=== PATIENT | female | born 1940 | race Caucasian/White ===

== ENCOUNTER → 2017-07-30 06:52 | Outpatient (CLI) | payer MEDICARE, OTHER, SELFPAY ==
[2017-07-30 10:36] LABS: Alanine Aminotransferase 26 IU/L (9-52); Albumin 4.4 g/dL (3.5-5.0); Albumin Globulin Ratio 1.3 (1.0-2.8); Alkaline Phosphatase 74 U/L (38-126); Aspartate Aminotransferase 28 IU/L (14-36); Bilirubin Total 0.7 mg/dL (0.2-1.3); Blood Urea Nitrogen 18 mg/dL (7-17); Calcium 9.8 mg/dL (8.4-10.2); Carbon Dioxide 29 mmol/L (22-32); Chloride 98 mmol/L (98-107); Cholesterol 244 mg/dL (140-199); Estimated Glomerular Filt Rate > 60.0 mL/min (>60); Globulin 3.4 g/dL (1.7-4.1); Glucose 97 mg/dL (80-110); HDL Cholesterol 55 mg/dL (40-60); HEMOLYSIS < 15 (0-50); LDL Cholesterol Calculated 168 mg/dL (<100); Potassium 4.1 mmol/L (3.4-5.1); Sodium 142 mmol/L (137-145); Total Protein 7.8 g/dL (6.3-8.2); Triglycerides 105 mg/dL (35-150)
[2017-07-30 10:47] LABS: Thyroid Stimulating Hormone 3.98 uIU/mL (0.47-4.68)
== END ==
PROVIDERS: PCP Family Medicine; Visit Provider Internal Medicine
DX: I10 Essential (primary) hypertension (principal); E78.5 Hyperlipidemia, unspecified
CPT/HCPCS: 36415; 80053; 80061; 84443

== ENCOUNTER → 2018-02-25 12:19 | Outpatient (CLI) | payer MEDICARE, OTHER, SELFPAY ==
--- NOTE | 2018-02-25 | DI.MG.S_ITS ---
BILATERAL DIGITAL SCREENING MAMMOGRAM 3D/2D WITH CAD: 02/25/2018 CLINICAL: Routine screening. Family history of breast cancer. Comparison is made to exams dated: 01/23/2017 mammogram, 01/02/2016 mammogram, and 12/29/2014 mammogram - [facility]. There are scattered fibroglandular elements in both breasts. Current study was also evaluated with a Computer Aided Detection (CAD) system. There are benign vascular calcifications in both breasts. No significant masses, calcifications, or other findings are seen in either breast. There has been no significant interval change. IMPRESSION: There is no mammographic evidence of malignancy. A 1 year screening mammogram is recommended. This exam was interpreted at Station ID: [id number]. NOTE: For mammograms, a report in lay terms will be sent to the patient. Approximately 15% of breast malignancies will not be visualized mammographically. In the management of a palpable breast mass, a negative mammogram must not discourage biopsy of a clinically suspicious lesion. Electronically Signed By: Safia reilly/phu:02/25/2018 16:35:21 letter sent: Normal Exam ACR BI-RADS Category 2: Benign Finding(s) 3342F
== END ==
PROVIDERS: PCP Internal Medicine; Visit Provider Internal Medicine
DX: Z12.31 Encounter for screening mammogram for malignant neoplasm of breast (principal); Z80.3 Family history of malignant neoplasm of breast
CPT/HCPCS: 77063; 77067

== ENCOUNTER → 2018-08-14 11:44 | Outpatient (CLI) | payer MEDICARE, OTHER, SELFPAY ==
[2018-08-14 13:14] LABS: Blood Urea Nitrogen 24 mg/dL (7-17); Calcium 10.2 mg/dL (8.4-10.2); Carbon Dioxide 27 mmol/L (22-32); Chloride 104 mmol/L (98-107); Estimated Glomerular Filt Rate 53.6 mL/min (>60); Glucose 107 mg/dL (80-110); HEMOLYSIS < 15 (0-50); Potassium 4.5 mmol/L (3.4-5.1); Sodium 142 mmol/L (137-145)
== END ==
PROVIDERS: PCP Internal Medicine; Visit Provider Internal Medicine
DX: E78.5 Hyperlipidemia, unspecified (principal); I10 Essential (primary) hypertension
CPT/HCPCS: 36415; 80048

== ENCOUNTER → 2019-03-10 09:53 | Outpatient (CLI) | payer MEDICARE, OTHER, SELFPAY ==
--- NOTE | 2019-03-10 | DI.MG.S_ITS ---
BILATERAL DIGITAL SCREENING MAMMOGRAM 3D/2D WITH CAD: 03/10/2019 CLINICAL: Routine screening. Family history of breast cancer. Comparison is made to exams dated: 02/25/2018 mammogram - [facility], 01/23/2017 mammogram, and 01/02/2016 mammogram - [facility]. There are scattered fibroglandular elements in both breasts. Current study was also evaluated with a Computer Aided Detection (CAD) system. There are benign vascular calcifications in the right breast. No significant masses, calcifications, or other findings are seen in either breast. There has been no significant interval change. IMPRESSION: There is no mammographic evidence of malignancy. A 1 year screening mammogram is recommended. This exam was interpreted at Station ID: [id number]. NOTE: For mammograms, a report in lay terms will be sent to the patient. Approximately 15% of breast malignancies will not be visualized mammographically. In the management of a palpable breast mass, a negative mammogram must not discourage biopsy of a clinically suspicious lesion. Electronically Signed By: Linda dukes/phu:03/10/2019 12:20:14 letter sent: Normal Exam ACR BI-RADS Category 2: Benign Finding(s) 3342F
== END ==
PROVIDERS: PCP Internal Medicine; Visit Provider Internal Medicine
DX: Z12.31 Encounter for screening mammogram for malignant neoplasm of breast (principal); Z80.3 Family history of malignant neoplasm of breast
CPT/HCPCS: 77063; 77067

== ENCOUNTER 2020-11-02 02:26 | Emergency (ER) | payer MEDICARE, OTHER, SELFPAY ==
[2020-11-02 02:30] VITALS: BP 209/93; PULSE 74; RESP 20; TEMP 36.6; O2SAT 97
[2020-11-02 02:40] VITALS: PULSE 67; O2SAT 98
--- NOTE | 2020-11-02 02:57 | ED_ITS ---
HPI - General Adult General Chief complaint: Recheck/Abnormal Lab/Rx Stated complaint: high blood pressure x3days Time Seen by Provider: 11/02/20 02:31 Source: patient Mode of arrival: Ambulatory Limitations: no limitations History of Present Illness HPI narrative: 80-year-old woman with a history of essential hypertension who was 3 weeks ago comes in with complaints of elevated blood pressure. She has been having difficulty sleeping after the loss of her and all of the arrangements etc.. She notes that her blood pressures have been trending in the 180-200 range. Over the last week or so she has had a dull headache behind her eyes and was wondering if this might be related to sinuses. She reports no paresthesias or weakness. No visual changes. She has had no chest pain, orthopnea, exertional dyspnea, palpitations, abdominal pain, vomiting, diarrhea, lower extremity edema. Her son brought her in this evening with concerns of of blood pressure at home of 210/100. Related Data Home Medications Medication Instructions Recorded Confirmed magnesium 200 mg tablet 200 mg PO PRN PRN #0 08/26/16 Previous Rx's Medication Instructions Recorded hydrochlorothiazide 25 mg tablet 25 mg PO DAILY #30 tab 11/02/20 lorazepam 0.5 mg tablet (Ativan) 0.5 mg PO BEDTIME PRN #14 tab 11/02/20 Allergies Allergy/AdvReac Type Severity Reaction Status Date / Time shellfish derived Allergy Severe THROAT Verified 11/02/20 03:05 [SHELLFISH DERIVED] SWELLING codeine [CODEINE] Allergy Mild NAUSEA Verified 11/02/20 03:05 Review of Systems Review of Systems Narrative: Remainder of complete review of systems is otherwise unremarkable except for that included in the HPI. Patient History Medical History (Updated 11/02/20 @ 03:10 by Luisa Morris MD) Hypertension Social History Smoking Status: Never smoker Smoking Status: Never smoker Substance Use Type: does not use Exam Narrative Exam Narrative: General: Healthy appearing, in no acute distress. Able to give a complete and coherent history. Well-nourished well-developed HEENT: Moist mucous membranes, normal sclera with reactive pupils, Respiratory: Lungs are clear to auscultation, no wheezing no rales no rhonchi. Full and symmetrical air movement Cardiac: Regular rate and rhythm no murmurs no bruits Skin: Warm and dry, no rashes Neurologic: Grossly neurologically intact with no obvious asymmetries or abnormalities Extremities: No trauma, well perfused Psych: Cooperative, appropriate insight and affect Initial Vital Signs Initial Vital Signs: Vital Signs Temperature 97.8 F 11/02/20 02:30 Pulse Rate 74 11/02/20 02:30 Respiratory Rate 20 11/02/20 02:30 Blood Pressure 209/93 H 11/02/20 02:30 Pulse Oximetry 97 11/02/20 02:30 Course Orders Ordered: Discontinued Medications Lorazepam (Lorazepam 0.5 Mg Tablet) 0.5 mg PO NOW ONE Stop: 11/02/20 02:59 Last Admin: 11/02/20 03:05 Dose: 0.5 mg Documented by: Vital Signs Vital signs: Vital Signs - 8 hr 11/02/20 02:30 Temperature 97.8 F Pulse Rate 74 Respiratory Rate 20 Blood Pressure 209/93 H Pulse Oximetry 97 Medical Decision Making MDM Narrative Medical decision making narrative: 80-year-old woman with acute grief reaction and difficulty adjusting with sleep abnormalities. This is likely contributing to her essential hypertension being slightly worsened. In the past she has had luck with a combination of valsartan and chlorthalidone. Somewhere along the line she discontinued the chlorthalidone. She does have an appointment with her primary care physician in about a week to review blood pressure issues. At this time, she is asymptomatic. Will suggest that she add back a diuretic and will change this to hydrochlorothiazide. Will have her start 25 mg in the morning. Check daily blood pressures and review this with her primary care physician. Regarding the grief reaction and sleep difficulties I have given her 10 tablets of 0.5 mg of lorazepam to see if this can help bridge this adjustment period for her. She and her son are both in agreement with current plan. Questions answered she is safe for home discharge Discharge Plan Departure Patient Disposition: Home Clinical Impression: Grief reaction Hypertension Qualifiers: Hypertension type: primary hypertension Qualified Code(s): I10 - Essential ( primary) hypertension Instructions: DI for High Blood Pressure Activity Restrictions/Additional Instructions: Lazara, it was wonderful to see you again. For your blood pressure, please add 25 mg of hydrochlorothiazide to your current valsartan 160 mg. You can take both medications 1st thing in the morning. After losing Wayne, you are up for a big life adjustment. It makes sense that you are having difficulty sleeping and worrying about things at night. It is wonderful that your son is available and can help. I suspect that part of this anxiety and the sleep loss is making your blood pressure more challenging to control. I am going to suggest that you try using lorazepam/ativan to help relax you enough to sleep. This is a transition medication only, but may be helpful in the next few weeks. I have given you a dose in the ER tonight. If it seems to be effective, then please fill the prescription and use it at bedtime as needed over the next couple of weeks. Please keep track of your blood pressures over the next week and review these numbers with Dr. Orozco. Please also let him know how you are doing with sleeping and how you have responded to this low dose of Ativan. I wish you the very best Prescriptions: New hydrochlorothiazide 25 mg tablet 25 mg PO DAILY Qty: 30 RF: 0 lorazepam [Ativan] 0.5 mg tablet 0.5 mg PO BEDTIME PRN (Reason: sleep) Qty: 14 RF: 0 No Action magnesium 200 MG tablet 200 mg PO PRN PRNQty: 0 RF: 0 Referrals: Brandon Veras MD [Primary Care Provider] -
[2020-11-02 03:00] VITALS: PULSE 59; O2SAT 96
[2020-11-02 03:01] VITALS: BP 206/83; PULSE 58; O2SAT 96
[2020-11-02] MEDS: LORazepam 0.5 MG TABLET PO (03:05)
== END 2020-11-02 03:17 | disposition home or self-care (01) ==
PROVIDERS: Emergency Provider Emergency Medicine; PCP Internal Medicine
DX: I10 Essential (primary) hypertension (principal); F43.20 Adjustment disorder, unspecified; Z72.820 Sleep deprivation
CPT/HCPCS: 99283

== ENCOUNTER 2020-11-29 14:42 | Emergency (ER) | payer MEDICARE, OTHER, SELFPAY ==
[2020-11-29 14:50] VITALS: PULSE 78; RESP 20; TEMP 36.6; O2SAT 99
--- NOTE | 2020-11-29 14:59 | DI.CT.S_ITS ---
PROCEDURE: CT FACIAL BONES WO CON INDICATIONS: fall TECHNIQUE: Noncontrast 2.5 mm thick axial images acquired from the mandible through the frontal sinuses, with coronal and sagittal reformatting. For radiation dose reduction, the following was used: automated exposure control, adjustment of mA and/or kV according to patient size. COMPARISON: [facility], CT, CT HEAD/BRAIN WO CON, 11/29/2020, 15:00. FINDINGS: Image quality: Excellent. Bones and teeth: Orbital colby are intact. Sinus colby show no fracture or deformity. Nasal bones and septum are intact. Visualized portions of the mandible demonstrate no fractures or subluxation. Zygomatic arches are intact. Pterygoid plates are intact. Visualized portions of the skull base and auditory canals are intact. Sinuses: Paranasal sinuses are aerated, without fluid levels, mucosal thickening, or mucoceles. Mastoid air cells are aerated. Soft tissues: No edema, masses, or fluid collections. No enlarged lymph nodes. No soft tissue lacerations or debris. Vascular: Visualized vascular structures appear normal in the absence of contrast. Bony vascular foramina and canals are intact. IMPRESSION: No visualized fracture. Dictated by: Karlie Gonzales M.D. on 11/29/2020 at 15:14 Approved by: Karlie Gonzales M.D. on 11/29/2020 at 15:17
--- NOTE | 2020-11-29 14:59 | DI.CT.S_ITS ---
PROCEDURE: CT HEAD/BRAIN WO CON INDICATIONS: fall TECHNIQUE: Noncontrast 4.5 mm thick angled axial sections acquired from the foramen magnum to the vertex, with coronal and sagittal reformats. For radiation dose reduction, the following was used: automated exposure control, adjustment of mA and/or kV according to patient size. COMPARISON: None. FINDINGS: Image quality: Excellent. CSF spaces: Basal cisterns are patent. No extra-axial fluid collections. The ventricles are symmetric in size and shape. Brain: No intracranial bleeds or masses. There is cerebral volume loss for age, with resultant ventricular and sulcal prominence. There are periventricular and deep white matter chronic small vessel ischemic changes. There is intracranial internal carotid artery atherosclerosis. Skull and face: Calvarium and visualized facial bones appear intact, without suspicious lesions. Sinuses: Visualized sinuses and mastoids are clear. IMPRESSION: 1. No acute intracranial process. 2. Moderate atrophy and chronic microvascular ischemic changes. Dictated by: Karlie Gonzales M.D. on 11/29/2020 at 15:12 Approved by: Karlie Gonzales M.D. on 11/29/2020 at 15:14
--- NOTE | 2020-11-29 15:50 | ED_ITS ---
HPI - Fall General Chief Complaint: Fall Stated Complaint: Fell down Mouth/Tooth injury Time Seen by Provider: 11/29/20 15:50 Source: patient Mode of arrival: Ambulatory History of Present Illness HPI Narrative: Patient is a 80-year-old female who earlier this afternoon tripped over her dog falling forward hitting her face on the ground. There was no loss of consciousness. She did scrape up her knees however she reports no other knee pain. No loss of conscious. No neck pain. She did break a tooth. She has had some dental issues in the past. She does have a dentist but has no current follow-up scheduled. She is not on blood thinners. No upper extremity complaints. Related Data Home Medications Medication Instructions Recorded Confirmed magnesium 200 mg tablet 200 mg PO PRN PRN #0 08/26/16 Previous Rx's Medication Instructions Recorded hydrochlorothiazide 25 mg tablet 25 mg PO DAILY #30 tab 11/02/20 lorazepam 0.5 mg tablet (Ativan) 0.5 mg PO BEDTIME PRN #14 tab 11/02/20 Allergies Allergy/AdvReac Type Severity Reaction Status Date / Time shellfish derived Allergy Severe THROAT Verified 11/02/20 03:05 [SHELLFISH DERIVED] SWELLING codeine [CODEINE] Allergy Mild NAUSEA Verified 11/02/20 03:05 Review of Systems Constitutional Constitutional: Denies fever(s) and Denies headache(s) Eyes Eyes: Denies change in vision ENT Ears, Nose, Mouth, and Throat: Reports system reviewed and no additional complaints, except as documented, Reports as per HPI and Denies headache(s) Cardiovascular Cardiovascular: Reports system reviewed and no additional complaints, except as documented Respiratory Respiratory: Reports system reviewed and no additional complaints, except as documented Gastrointestinal Gastrointestinal: Reports system reviewed and no additional complaints, except as documented Musculoskeletal Musculoskeletal: Reports system reviewed and no additional complaints, except as documented Integumentary/Breasts Skin/Breast: Reports system reviewed and no additional complaints, except as documented Neurologic Neurologic: Denies headache(s) Hematologic/Lymphatic On Anticoagulants: No Patient History Medical History Hypertension Social History Smoking Status: Never smoker Smoking Status: Never smoker Substance Use Type: does not use Exam Initial Vital Signs Initial Vital Signs: Vital Signs Temperature 97.9 F 11/29/20 14:50 Pulse Rate 78 11/29/20 14:50 Respiratory Rate 20 11/29/20 14:50 Pulse Oximetry 99 11/29/20 14:50 Const General: cooperative, comfortable and well developed [facility] Head: normal to inspection Ears: hearing grossly normal bilaterally Nose: external nose normal, septum normal and No epistaxis Face and sinus: normal facial exam, face symmetric and no maxillary instability Mouth: oral mucosae normal, lip normal and tongue normal Teeth and gingiva: other (tooth 7 broken rosa 3 ) Resp Effort & Inspection: normal respiratory effort Skin General: no rashes or lesions noted Neuro General: patient alert, patient awake, patient oriented x3 and moves all extremities Extrem General: normal to inspection and capillary refill normal Scores GCS [place] coma scale eye opening: Spontaneous [place] coma scale verbal response: Orientated [place] coma scale motor response: Obey commands [place] coma scale total score: 15 Nexus Score for C-Spine Focal Neurologic deficit present: No Midline spinal tenderness present: No Altered level of conciousness present: No Intoxication present: No Distracting Injury Present: No Nexus Criteria for C-spine: 0 Course Orders Ordered: ED Orders 11/29/20 14:59 CT facial bones wo con Stat CT head/brain wo con Stat Vital Signs Vital signs: Vital Signs - 8 hr 11/29/20 14:50 Temperature 97.9 F Pulse Rate 78 Respiratory Rate 20 Pulse Oximetry 99 MDM - Fall Imaging Data CT scan - head: Radiologist's Impression: [place] [address] CT Scan Report Signed Patient: Lazara Samson MR#: [id number] : 1940 Acct:[id number] Age/Sex: 80 / F Date of Service: 11/29/20 Loc: ED Accession Number: [id number] ?? Procedure: CT head/brain wo con Ordering Provider: Bj Mcfarland D.O. PROCEDURE:? CT HEAD/BRAIN WO CON ? INDICATIONS:? fall ? TECHNIQUE:? Noncontrast 4.5 mm thick angled axial sections acquired from the foramen magnum to the vertex, with coronal and sagittal reformats.? For radiation dose reduction, the following was used:? automated exposure control, adjustment of mA and/or kV according to patient size.? ? COMPARISON:? None. ? FINDINGS:? Image quality:? Excellent.? ? CSF spaces:? Basal cisterns are patent.? No extra-axial fluid collections.? The ventricles are symmetric in size and shape.? ? Brain:? No intracranial bleeds or masses.? There is cerebral volume loss for age, with resultant ventricular and sulcal prominence.? There are periventricular and deep white matter chronic small vessel ischemic changes.? There is intracranial internal carotid artery atherosclerosis.? ? Skull and face:? Calvarium and visualized facial bones appear intact, without suspicious lesions.? ? Sinuses:? Visualized sinuses and mastoids are clear.? ? IMPRESSION:? ? 1. No acute intracranial process. ? 2. Moderate atrophy and chronic microvascular ischemic changes. ? ? ? Dictated by: Karlie Gonzales M.D. on 11/29/2020 at 15:12 ? ? Approved by: Karlie Gonzales M.D. on 11/29/2020 at 15:14?? face ct: Radiologist's Impression: Launch?[place] [address] CT Scan Report Signed Patient: Lazara Samson MR#: [id number] : 1940 Acct:[id number] Age/Sex: 80 / F Date of Service: 11/29/20 Loc: ED Accession Number: [id number] ?? Procedure: CT facial bones wo con Ordering Provider: Bj Mcfarland D.O. PROCEDURE:? CT FACIAL BONES WO CON ? INDICATIONS:? fall ? TECHNIQUE:? Noncontrast 2.5 mm thick axial images acquired from the mandible through the frontal sinuses, with coronal and sagittal reformatting.? For radiation dose reduction, the following was used:? automated exposure control, adjustment of mA and/or kV according to patient size.? ? COMPARISON:? [facility], CT, CT HEAD/BRAIN WO CON, 11/29/2020, 15:00. ? FINDINGS:? Image quality:? Excellent.? ? Bones and teeth:? Orbital colby are intact.? Sinus colby show no fracture or deformity.? Nasal bones and septum are intact.? Visualized portions of the mandible demonstrate no fractures or subluxation.? Zygomatic arches are intact.? Pterygoid plates are intact.? Visualized portions of the skull base and auditory canals are intact.? ? Sinuses:? Paranasal sinuses are aerated, without fluid levels, mucosal thickening, or mucoceles.? Mastoid air cells are aerated.? ? Soft tissues:? No edema, masses, or fluid collections.? No enlarged lymph nodes.? No soft tissue lacerations or debris.? ? Vascular:? Visualized vascular structures appear normal in the absence of contrast.? Bony vascular foramina and canals are intact.? ? IMPRESSION:? ? No visualized fracture. ? ? Dictated by: Karlie Gonzales M.D. on 11/29/2020 at 15:14 ? ? Approved by: Karlie Gonzales M.D. on 11/29/2020 at 15:17?? MDM Narrative Medical decision making narrative: Head CT and facial CT are unremarkable. She does have a Rosa 3 classification tooth fracture of tooth 7. She has already had dental issues in the past and was planning on getting implants placed. Is not actively bleeding. A temporary cement breech was placed crossing to tooth 6 and 5. Informed her that this is only temporary and may not last until she can see a dentist. We did discuss eating a soft/liquid diet. Cervical spine cleared by nexus criteria. No indication for further radiologic studies. This was a mechanical fall. She is given return precautions and follow-up instructions. She expressed understanding agreement her Discharge Plan Departure Patient Disposition: Home Clinical Impression: Fracture of tooth Instructions: DI for Fractured Tooth Activity Restrictions/Additional Instructions: With any luck the temporary cement bridge that was placed today will last until you can see your dentist. I recommend that you contact your dentist tomorrow for a follow-up. Until then I do recommend a liquid/soft diet. Your head CT and CT scan of the facial bones did not show any signs of fractures. Return to the emergency department for any new or worsening symptoms Prescriptions: No Action magnesium 200 MG tablet 200 mg PO PRN PRNQty: 0 RF: 0 hydrochlorothiazide 25 mg tablet 25 mg PO DAILY Qty: 30 RF: 0 lorazepam [Ativan] 0.5 mg tablet 0.5 mg PO BEDTIME PRN (Reason: sleep) Qty: 14 RF: 0 Referrals: Brandon Veras MD [Primary Care Provider] -
[2020-11-29 16:36] VITALS: BP 200/82; PULSE 65; RESP 18; O2SAT 98
== END 2020-11-29 16:38 | disposition home or self-care (01) ==
PROVIDERS: Emergency Provider Emergency Medicine; PCP Internal Medicine
DX: S02.5XXA Fracture of tooth (traumatic), initial encounter for closed fracture (principal); W19.XXXA Unspecified fall, initial encounter
CPT/HCPCS: 70450; 70486; 99283; 99284

== ENCOUNTER 2021-04-30 20:49 | Emergency (ER) | payer MEDICARE, OTHER, SELFPAY ==
[2021-04-30] VITALS (9 sets, daily range): BP systolic 151–234; BP diastolic 63–94; PULSE 60–156; RESP 18–43; TEMP 36.8; O2SAT 89–99; BMI 23.0
--- NOTE | 2021-04-30 22:03 | DI.RAD.S_ITS ---
PROCEDURE: XR CHEST 1V INDICATIONS: chest pain TECHNIQUE: One view of the chest was acquired. COMPARISON: [facility], , CHEST 1 VIEW, 08/26/2016, 12:14. FINDINGS: Surgical changes and devices: None. Lungs and pleura: Lungs are clear. No pleural effusions or pneumothorax. Mediastinum: Mediastinal contours appear normal. Heart size is normal. Bones and chest wall: No suspicious bony lesions. Overlying soft tissues appear unremarkable. IMPRESSION: No acute cardiopulmonary disease process. Dictated by: Dominga Buchanan MD, PhD on 04/30/2021 at 22:37 Approved by: Dominga Buchanan MD, PhD on 04/30/2021 at 22:37
[2021-04-30 22:10] LABS: Add Manual Diff / Slide Review NO; Basophils Absolute Auto 100 /uL (0-100); Eosinophils Absolute Auto 300 /uL (0-450); Hemoglobin 13.6 g/dL (12.0-16.0); Lymphocytes Absolute Auto 2800 /uL (1100-4500); Lymphocytes Percent Auto 43.2 % (25-40); Mean Corpuscular HGB Conc 33.9 % (30-36); Mean Corpuscular Hemoglobin 29.6 PG (26-34); Mean Corpuscular Volume 87.4 fL (80-100); Monocytes Absolute Auto 500 /uL (0-900); Monocytes Percent Auto 7.2 % (3-14); Neutrophils Absolute Auto 2900 /uL (1500-7000); Neutrophils Percent Auto 44.6 % (50-75); Platelet Count 254 X10^3/uL (150-400); Red Blood Cell Count 4.58 X10^6/uL (4.0-5.2); White Blood Cell Count 6.6 X10^3/uL (4.5-11.0)
[2021-04-30 22:41] LABS: Alanine Aminotransferase 16 IU/L (<35); Albumin 4.5 g/dL (3.5-5.0); Albumin Globulin Ratio 1.4 (1.0-2.8); Alkaline Phosphatase 87 U/L (38-126); Aspartate Aminotransferase 29 IU/L (14-36); BUN Creatinine Ratio 19.5 (6-22); Bilirubin Total 0.5 mg/dL (0.2-1.3); Blood Urea Nitrogen 16 mg/dL (7-17); Calcium 9.7 mg/dL (8.4-10.2); Carbon Dioxide 26 mmol/L (22-32); Chloride 104 mmol/L (98-107); Creatine Kinase 70 U/L (30-135); Estimated Glomerular Filt Rate > 60.0 mL/min (>60); Globulin 3.2 g/dL (1.7-4.1); Glucose 104 mg/dL (80-110); HEMOLYSIS 21 (0-50); Lipase 91 U/L (23-300); Magnesium 1.9 mg/dL (1.6-2.3); Potassium 4.1 mmol/L (3.4-5.1); Sodium 137 mmol/L (137-145); Total Protein 7.7 g/dL (6.3-8.2)
[2021-04-30 22:52] LABS: Troponin I < 0.012 ng/mL (0.01-0.034)
[2021-05-01] VITALS: BP 168/72; PULSE 60; RESP 13; O2SAT 98
[2021-05-01 00:30] VITALS: BP 168/73; PULSE 59; RESP 19; O2SAT 97
--- NOTE | 2021-05-01 00:34 | ED.GENADULT ---
HPI - General Adult General Chief complaint: Hypertension Stated complaint: HIGH BLOOD PRESSURE Time Seen by Provider: 04/30/21 23:35 Source: patient Mode of arrival: Ambulatory Limitations: no limitations History of Present Illness HPI narrative: This is an 80-year-old female who comes emergency department with complaint of elevated blood pressure. Patient states she has been checking her blood pressure regularly she has gotten systolics greater than 200 and had a systolic of turn today. She states she has had intermittent elevations in blood pressure which has been worsened recently. She has felt quite stressed and anxious and that seems to make it worse. She states when she feels calm her blood pressures are typically better. Her primary care physician did double her valsartan to 160 mg a week ago and had increased her amlodipine to 10 mg 2 weeks ago. Patient states she occasionally will have a headache and feels flushed her cheeks, she has not had any numbness, tingling or weakness, no chest pain or shortness of breath. No nausea or vomiting. No swelling her extremities. She states she has been ambulating without issue. She states she is quite active up and down the stairs and moving things. She has not been as physically active with gardening and being outdoors because of the acromion weather. She has not any other daily medications besides her 2 blood pressure meds. No daily aspirin. She has had prior appendectomy, hysterectomy and dental surgeries. No tobacco, alcohol or illicit. She does note she was given a short-term prescription for lorazepam and would take half 0.5 mg tablet which did seem to be quite helpful. She states this was given her after her in September. She thought that her stress would reduce but has not since then. Related Data Home Medications Medication Instructions Recorded Confirmed magnesium 200 mg tablet 200 mg PO PRN PRN #0 08/26/16 Previous Rx's Medication Instructions Recorded hydrochlorothiazide 25 mg tablet 25 mg PO DAILY #30 tab 11/02/20 lorazepam 0.5 mg tablet (Ativan) 0.5 mg PO BEDTIME PRN #14 tab 11/02/20 lorazepam 0.5 mg tablet 0.25 mg PO DAILY PRN #10 tab 05/01/21 Allergies Allergy/AdvReac Type Severity Reaction Status Date / Time shellfish derived Allergy Severe THROAT Verified 11/02/20 03:05 [SHELLFISH DERIVED] SWELLING codeine [CODEINE] Allergy Mild NAUSEA Verified 11/02/20 03:05 Review of Systems Review of Systems ROS Unobtainable: All systems reviewed & are unremarkable except as noted in HPI and below Patient History Medical History Hypertension Social History Smoking Status: Never smoker Smoking Status: Never smoker Substance Use Type: does not use Exam Narrative Exam Narrative: GEN: Well appearing, thin elderly female alert and oriented x 3, patient appears to be in mild distress. HEENT: Atraumatic, pupils are equal round reactive to light, extraocular movements are intact, nares are clear. Throat is clear without any exudates, erythema, tonsillar enlargement or uvular deviation, no facial droop. HEART: Regular rate and rhythm without murmur, clicks, rubs. Pulses are equal in upper and lower extremities LUNGS:Lungs clear to auscultation, no wheezes, rales, crackles, chest moves symmetrically ABD:bowel sounds normal, soft, non-tender, no guarding, rebound, rigidity, no masses noted, no hepatosplenomegaly :No CVA tenderness MSCL: Non-tender, no muscle atrophy, muscles strength 5/5 upper and lower extremities, full range of motion NEURO:CN 2-12 intact, sensation normal SKIN: No rash, erythema or other skin changes noted. Initial Vital Signs Initial Vital Signs: Vital Signs Temperature 98.2 F 04/30/21 21:08 Pulse Rate 74 04/30/21 21:08 Respiratory Rate 18 04/30/21 21:08 Blood Pressure 234/94 H 04/30/21 21:08 Pulse Oximetry 98 04/30/21 21:08 Course Orders Ordered: ED Orders 04/30/21 21:30 Complete Blood Count AUTO DIFF Stat Comprehensive Metabolic Panel Stat Lipase Stat Magnesium Stat Troponin & CK Cardiac Panel Stat 04/30/21 22:03 XR chest 1V Stat EKG-12 Lead Stat Discontinued Medications Lorazepam (Lorazepam 0.5 Mg Tablet) 0.25 mg PO NOW ONE Stop: 05/01/21 00:54 Last Admin: 05/01/21 01:01 Dose: 0.25 mg Documented by: SHUBHAM Vital Signs Vital signs: Vital Signs - 8 hr 04/30/21 22:30 04/30/21 23:01 04/30/21 23:02 Pulse Rate 60 142 H 69 Respiratory Rate 43 H 30 H 22 Blood Pressure 198/76 H Pulse Oximetry 99 89 L 97 04/30/21 23:30 04/30/21 23:31 05/01/21 00:00 Pulse Rate 62 67 60 Respiratory Rate 18 28 H 13 Blood Pressure 151/63 H 168/72 H Pulse Oximetry 98 98 98 05/01/21 00:30 Pulse Rate 59 L Respiratory Rate 19 Blood Pressure 168/73 H Pulse Oximetry 97 Medical Decision Making Lab Data Result diagrams: 04/30/21 21:30 04/30/21 21:30 Labs: Lab Results 04/30/21 04/30/21 Range/Units 21:30 21:30 WBC 6.6 (4.5-11.0) X10^3/uL RBC 4.58 (4.0-5.2) X10^6/uL Hgb 13.6 (12.0-16.0) g/dL Hct 40.0 (36-46) % MCV 87.4 (80-100) fL MCH 29.6 (26-34) PG MCHC 33.9 (30-36) % RDW 13.0 (11.6-14.8) % Plt Count 254 (150-400) X10^3/uL Neut % (Auto) 44.6 L (50-75) % Lymph % (Auto) 43.2 H (25-40) % Thurston % (Auto) 7.2 (3-14) % Eos % (Auto) 4.0 (2-4) % Baso % (Auto) 1.0 (0-2) % Neut # (Auto) 2900 (4781-1874) /uL Lymph # (Auto) 2800 (5418-2922) /uL Thurston # (Auto) 500 (0-900) /uL Eos # (Auto) 300 (0-450) /uL Baso # (Auto) 100 (0-100) /uL Sodium 137 (137-145) mmol/L Potassium 4.1 (3.4-5.1) mmol/L Chloride 104 (98-107) mmol/L Carbon Dioxide 26 (22-32) mmol/L BUN 16 (7-17) mg/dL Creatinine 0.82 (0.52-1.04) mg/dL Estimated GFR > 60.0 (>60) mL/min BUN/Creatinine Ratio 19.5 (6-22) Glucose 104 (80-110) mg/dL Calcium 9.7 (8.4-10.2) mg/dL Magnesium 1.9 (1.6-2.3) mg/dL Total Bilirubin 0.5 (0.2-1.3) mg/dL AST 29 (14-36) IU/L ALT 16 (<35) IU/L Alkaline Phosphatase 87 (38-126) U/L Total Creatine Kinase 70 (30-135) U/L CK-MB (CK-2) TNP CK-MB (CK-2) Rel Index TNP Troponin I < 0.012 (0.01-0.034) ng/mL Total Protein 7.7 (6.3-8.2) g/dL Albumin 4.5 (3.5-5.0) g/dL Globulin 3.2 (1.7-4.1) g/dL Albumin/Globulin Ratio 1.4 (1.0-2.8) Lipase 91 (23-300) U/L Imaging Data Chest x-ray: Radiologist's Impression: [address] [id number] XRay Report Signed Patient: Lazara Samson MR#: [id number] : 1940 Acct:[id number] Age/Sex: 80 / F Date of Service: 04/30/21 Loc: ED Accession Number: [id number] ?? Procedure: XR chest 1V Ordering Provider: Xiomara Gonzalez D.O. PROCEDURE:? XR CHEST 1V ? INDICATIONS:? chest pain ? TECHNIQUE:? One view of the chest was acquired.? ? COMPARISON:? [facility], , CHEST 1 VIEW, 08/26/2016, 12:14. ? FINDINGS:? ? Surgical changes and devices:? None.? ? Lungs and pleura:? Lungs are clear.? No pleural effusions or pneumothorax.? ? Mediastinum:? Mediastinal contours appear normal.? Heart size is normal.? ? Bones and chest wall:? No suspicious bony lesions.? Overlying soft tissues appear unremarkable.? ? IMPRESSION:? No acute cardiopulmonary disease process. ? ? Dictated by: Dominga Buchanan MD, PhD on 04/30/2021 at 22:37 ? ? Approved by: Dominga Buchanan MD, PhD on 04/30/2021 at 22:37?? ECG Data Attestation: I personally reviewed and interpreted this ECG as follows: Prior ECG tracings: available for review Interpretation: Patient has sinus rhythm nonspecific ST change, rate of 68 OR 174 QRS is [address]TC [address] Patient has [address] depression lateral leads but appears present on prior EKG from 08/26/2016 as well as inverted T-wave and depression in 2 3 AVF which also appears present on prior EKG. MDM Narrative Medical decision making narrative: This is a pleasant 80-year-old female comes with complaint of elevated blood pressures. Blood pressures been drifting down. Here in the department to 168/73. Patient describes being quite stressed after the of her last summer she does note that when she is busy and her mind is calm her blood pressure seemed to be improved but when she stops and thinks they tend to be elevated and she feels quite anxious. She has had some mild headaches and flushed cheeks but no other symptoms. She is asymptomatic currently. Her blood pressure has been improving without intervention. Plan to have patient continue her home medications. She did note she had a prescription that was short-term for benzodiazepine which she felt was quite helpful and I think this would be appropriate. She is in progress is setting up primary care follow-up. Discharge Plan Departure Patient Disposition: Home Clinical Impression: Hypertension Instructions: DI for High Blood Pressure Activity Restrictions/Additional Instructions: Follow-up with your physician. Let them know that you were seen in the emergency department we do recommend follow-up. Continue to monitor your blood pressures. Continue home blood pressure medication. These both seem very appropriate. Has discussed anxiety, grief and stress can cause your blood pressure to elevate if you find it helpful you can take a half tablet of anti anxiety medication as needed. You may wish to discuss with your physician about a daily medication that can often be helpful for this but does not cause any chemical dependence. Prescription sent to [facility] in [place]. Please return for severe headaches, new chest pain or shortness of breath, lightheadedness or passing out, nausea or vomiting, new swelling in her extremities or other new or concerning symptoms. Prescriptions: New lorazepam 0.5 mg tablet 0.25 mg PO DAILY PRN (Reason: anxiety) Qty: 10 0RF No Action magnesium 200 MG tablet 200 mg PO PRN PRNQty: 0 0RF hydrochlorothiazide 25 mg tablet 25 mg PO DAILY Qty: 30 0RF lorazepam [Ativan] 0.5 mg tablet 0.5 mg PO BEDTIME PRN (Reason: sleep) Qty: 14 0RF Referrals: Brandon Veras MD [Primary Care Provider] -
[2021-05-01] MEDS: LORazepam 0.5 MG TABLET 0.25 MG PO (01:01)
== END 2021-05-01 01:09 | disposition home or self-care (01) ==
PROVIDERS: Emergency Provider Emergency Medicine; PCP Internal Medicine
DX: I10 Essential (primary) hypertension (principal)
CPT/HCPCS: 36415; 71045; 80053; 82550; 83690; 83735; 84484; 85025; 93005; 93010; 99284

== ENCOUNTER 2021-05-28 16:17 | Emergency (ER) | payer MEDICARE, OTHER, SELFPAY ==
[2021-05-28] VITALS (8 sets, daily range): BP systolic 164–209; BP diastolic 74–94; PULSE 60–77; RESP 18; TEMP 36.8; O2SAT 96–100; BMI 23.1
--- NOTE | 2021-05-28 21:16 | ED_ITS ---
HPI - General Adult General Chief complaint: Allergic Reaction Stated complaint: Allergic Reaction Time Seen by Provider: 05/28/21 21:05 Mode of arrival: EMS History of Present Illness HPI narrative: 80-year-old woman with a history of hypertension and sensitivities to multiple medications noticed that she had some flushing developing today after medications and wanted to talk to her primary care doctor. She initially presented to the primary care office but was redirected to the emergency department. She notes that she was recently started on iodine and it was after taking half the dose this morning and half the does early afternoon that she noticed the flushing. She also had her valsartan increased from 160 mg to 320 mg and the flushing was concurrent with valsartan dosing as well. She has had problems with higher doses of valsartan causing a cough in the past. She currently is on amlodipine. She has been on hydrochlorothiazide in the past but caused hypokalemia so this has been discontinued. She notes that her blood pressures are still moderately elevated. She has otherwise been feeling well, no chest pain, palpitations, dyspnea, orthopnea, lower extremity edema, vomiting, diarrhea, abdominal pain, headaches or acute neurologic changes. She does note that she has had a bit of difficulty sleeping and was given a prescription for lorazepam but found that even at half a dose she still felt groggy the next day and has decided not to continue this. Related Data Home Medications Medication Instructions Recorded Confirmed amlodipine 10 mg tablet 10 mg PO QAM 05/28/21 05/28/21 atenolol 25 mg tablet 25 mg PO BEDTIME 05/28/21 05/28/21 lorazepam 0.5 mg tablet 0.25 mg PO BEDTIME PRN 05/28/21 05/28/21 valsartan 160 mg tablet 160 mg PO BEDTIME 05/28/21 05/28/21 Allergies Allergy/AdvReac Type Severity Reaction Status Date / Time shellfish derived Allergy Severe THROAT Verified 05/28/21 16:28 [SHELLFISH DERIVED] SWELLING codeine [CODEINE] Allergy Mild NAUSEA Verified 05/28/21 16:28 Review of Systems Review of Systems Narrative: Remainder of complete review of systems is otherwise unremarkable except for that included in the HPI. Patient History Medical History Hypertension Social History Smoking Status: Never smoker Smoking Status: Never smoker Substance Use Type: does not use Exam Initial Vital Signs Initial Vital Signs: Vital Signs Temperature 98.3 F 05/28/21 16:20 Pulse Rate 77 05/28/21 16:20 Respiratory Rate 18 05/28/21 16:20 Blood Pressure 164/87 H 05/28/21 16:20 Pulse Oximetry 96 05/28/21 16:20 General: Healthy appearing, in no acute distress. Able to give a complete and coherent history. Well-nourished well-developed HEENT: Moist mucous membranes, normal sclera with reactive pupils, Neck: No JVD, supple Respiratory: Lungs are clear to auscultation, no wheezing no rales no rhonchi. Full and symmetrical air movement Cardiac: Regular rate and rhythm no murmurs no bruits Abdomen: Soft, nontender, good bowel tones, no flank pain Skin: Warm and dry, no rashes Neurologic: Grossly neurologically intact with no obvious asymmetries or abnormalities Extremities: No trauma, well perfused Psych: Cooperative, appropriate insight and affect Course Vital Signs Vital signs: Vital Signs - 8 hr 05/28/21 20:00 05/28/21 20:01 Pulse Rate 68 62 Blood Pressure 187/74 H 187/74 H Pulse Oximetry 97 98 Medical Decision Making [facility] Narrative Medical decision making narrative: 80-year-old woman with recent change to losartan and addition of iodine and noticing flushing after taking both medications today. For the time she is seen and evaluated by me in the emergency department her symptoms have entirely resolved. We talked about options for medications. As she did well on the 160 mg of valsartan will have her go back to this. Will have her discontinue the iodine as the likely source of the flushing. For her blood pressure have asked her to add 25 mg of atenolol at night and we did discuss relative bradycardia and hypotension with this. She will be checking regular blood pressure readings and following up with her primary care physician. I have recommended that she continue the 10 mg of amlodipine she is currently taking. She was quite pleased with all of these recommendations, had no additional concerns and is safe for home discharge Discharge Plan Departure Patient Disposition: Home Clinical Impression: Adverse drug reaction Instructions: DI for Adverse Drug Reaction -- Allergic Activity Restrictions/Additional Instructions: Thank you for coming in today, it is always a delight to see you. I suspect that the flushing that you are experiencing is from the iodine and I am going to suggest that you stop this completely. Because the symptoms are also time related to the higher dose of valsartan, I am going to suggest he go back to your previous valsartan dose of 160 mg daily. Because he did not tolerate the hydrochlorothiazide and your blood pressure is still not adequately controlled on 160 mg of valsartan and 10 mg of amlodipine, I am going to suggest we try adding 25 mg of atenolol at night. A prescription for this is given few to start tomorrow night. The prescription was electronically transmitted to [facility]. Please continue to keep track of your blood pressures, once a day and schedule an appointment with your primary care physician to discuss all of these medication changes I wish you the best Prescriptions: No Action atenolol 25 mg Tablet 25 mg PO BEDTIME 0RF lorazepam 0.5 mg tablet 0.25 mg PO BEDTIME PRN (Reason: Insomnia) 0RF Label Comments: TAKE ONE TABLET BY MOUTH NIGHTLY AT BEDTIME NEEDED amlodipine 10 mg tablet 10 mg PO QAM 0RF Label Comments: TAKE ONE TABLET BY MOUTH ONE TIME DAILY valsartan 160 mg tablet 160 mg PO BEDTIME 0RF Label Comments: TAKE ONE TABLET BY MOUTH ONE TIME DAILY Referrals: Daniel Orozco MD [Primary Care Provider] -
== END 2021-05-28 21:43 | disposition home or self-care (01) ==
PROVIDERS: Emergency Provider Emergency Medicine; PCP Internal Medicine
DX: R23.2 Flushing (principal); T49.0X5A Adverse effect of local antifungal, anti-infective and anti-inflammatory drugs, initial encounter
CPT/HCPCS: 99281

== ENCOUNTER → 2021-07-14 11:30 | Outpatient (CLI) | payer MEDICARE, OTHER, SELFPAY ==
[2021-07-14 12:43] LABS: Hematocrit 40.2 % (36-46); Hemoglobin 13.6 g/dL (12.0-16.0)
[2021-07-14 13:00] LABS: Blood Urea Nitrogen 18 mg/dL (7-17); Carbon Dioxide 26 mmol/L (22-32); Chloride 103 mmol/L (98-107); Estimated Glomerular Filt Rate > 60 mL/min (>60); Glucose 95 mg/dL (80-110); HEMOLYSIS < 15 (0-50); Potassium 5.2 mmol/L (3.4-5.1); Sodium 138 mmol/L (137-145)
[2021-07-14 17:07] LABS: Creatinine Urine Random 84.3 mg/dL
[2021-07-14 17:30] LABS: Protein (Total) Urine Random < 5 mg/dL (0-12); Protein Creatinine Ratio Urine < 0.05 GRAM/24H
== END ==
PROVIDERS: PCP Internal Medicine; Referring Provider Student in an Organized Health Care Education/Training Program; Visit Provider Student in an Organized Health Care Education/Training Program
DX: N05.9 Unspecified nephritic syndrome with unspecified morphologic changes (principal); D64.9 Anemia, unspecified; R80.9 Proteinuria, unspecified
CPT/HCPCS: 36415; 80048; 82570; 84156; 85014; 85018

== ENCOUNTER → 2021-07-25 09:06 | Outpatient (CLI) | payer MEDICARE, OTHER, SELFPAY ==
--- NOTE | 2021-07-25 09:11 | DI.US.S_ITS ---
PROCEDURE: US RENAL COMPLETE INDICATIONS: CHRONIC KIDNEY DISEASE STAGE 2 TECHNIQUE: Real-time scanning was performed of the kidneys and bladder, with image documentation. COMPARISON: None. FINDINGS: Kidneys: Kidneys are normal in size. Right kidney measures 9.3 cm long; left kidney measures 7.3 cm long. Right renal cortical thickness is 1.4 cm; left renal cortical thickness is 1.4 cm. Renal cortical echotexture is normal. No hydronephrosis or nephrolithiasis. No suspicious solid mass lesions. There is a 3.9 cm simple right renal cyst and a 5.4 cm simple left renal cyst. Bladder: Pre-void bladder volume is 280 mL. Post-void residual is 65 mL. Pre-void images demonstrate no intraluminal masses or stones. On pre-void images, bilateral ureteral jets are noted with color Doppler interrogation. (Of note, ureteral jets may not be detectable in up to 25% of cases due to insufficient differences in specific gravity between ureteral and bladder urine). Miscellaneous: No free pelvic fluid. IMPRESSION: 1. No hydronephrosis. 2. Small to moderate postvoid residual. Dictated by: Safia Gilbert M.D. on 07/25/2021 at 13:44 Approved by: Safia Gilbert M.D. on 07/25/2021 at 13:47
[2021-07-25 11:34] LABS: HEMOLYSIS < 15 (0-50); Potassium 4.3 mmol/L (3.4-5.1)
== END ==
PROVIDERS: PCP Internal Medicine; Referring Provider Student in an Organized Health Care Education/Training Program; Visit Provider Student in an Organized Health Care Education/Training Program
DX: N18.2 Chronic kidney disease, stage 2 (mild) (principal); E87.5 Hyperkalemia
CPT/HCPCS: 36415; 76770; 84132

== ENCOUNTER → 2021-09-01 08:16 | Outpatient (CLI) | payer MEDICARE, OTHER, SELFPAY ==
--- NOTE | 2021-09-01 08:19 | DI.MG.S_ITS ---
BILATERAL DIGITAL SCREENING MAMMOGRAM 3D/2D WITH CAD: 09/01/2021 CLINICAL: Routine screening. Family history of breast cancer. Comparison is made to exams dated: 08/10/2020 mammogram - [facility] [place], 03/10/2019 mammogram, 02/25/2018 mammogram - [facility], and 01/23/2017 mammogram - [facility]. The tissue of both breasts is heterogeneously dense. This may lower the sensitivity of mammography. Current study was also evaluated with a Computer Aided Detection (CAD) system. There are benign vascular calcifications in the right breast. No significant masses, calcifications, or other findings are seen in either breast. There has been no significant interval change. IMPRESSION: BENIGN There is no mammographic evidence of malignancy. A 1 year screening mammogram is recommended. Based on the Tyrer Cuzick model (a risk assessment model) the patient's lifetime risk is 3.5% and her 10 year risk is 0.0%. According to the ACR, ACS, and NCCN guidelines, an annual breast MRI exam along with mammogram is recommended if the patient's lifetime risk is 20% or greater. This exam was interpreted at Station ID: [id number]. NOTE: For mammograms, a report in lay terms will be sent to the patient. Approximately 15% of breast malignancies will not be visualized mammographically. In the management of a palpable breast mass, a negative mammogram must not discourage biopsy of a clinically suspicious lesion. Electronically Signed By: Primitivo lawrence/phu:09/03/2021 08:46:17 letter sent: Normal Exam ACR BI-RADS Category 2: Benign Finding(s) 3342F
== END ==
PROVIDERS: PCP Internal Medicine; Referring Provider Internal Medicine; Visit Provider Internal Medicine
DX: Z12.31 Encounter for screening mammogram for malignant neoplasm of breast (principal); Z80.3 Family history of malignant neoplasm of breast
CPT/HCPCS: 77063; 77067

== ENCOUNTER → 2021-11-12 11:19 | Outpatient (CLI) | payer MEDICARE, OTHER, SELFPAY ==
[2021-11-12 12:14] LABS: Hematocrit 37.2 % (36-46); Hemoglobin 12.8 g/dL (12.0-16.0)
[2021-11-12 13:26] LABS: BUN Creatinine Ratio 21.4 (6-22); Blood Urea Nitrogen 18 mg/dL (7-17); Calcium 9.2 mg/dL (8.4-10.2); Carbon Dioxide 26 mmol/L (22-32); Chloride 102 mmol/L (98-107); Estimated Glomerular Filt Rate > 60 mL/min (>60); Glucose 91 mg/dL (80-110); HEMOLYSIS < 15 (0-50); Potassium 4.5 mmol/L (3.4-5.1); Sodium 137 mmol/L (137-145)
[2021-11-12 14:30] LABS: Creatinine Urine Random 27.7 mg/dL; Protein (Total) Urine Random 15 mg/dL (0-12); Protein Creatinine Ratio Urine 0.54 GRAM/24H
[2021-11-12 19:33] LABS: Appearance Urine UA CLEAR; Bilirubin Urine UA NEGATIVE (NEGATIVE); Color Urine UA YELLOW; Glucose Urine UA NEGATIVE (Negative); Ketones Urine UA NEGATIVE (NEGATIVE); Leukocyte Esterase Urine UA 3+ (NEGATIVE); Nitrite Urine UA NEGATIVE (Negative); Occult Blood Urine UA 1+ (Negative); Protein Urine UA NEGATIVE (Negative); Specific Gravity Urine UA <=1.005 (1.000-1.035); Urobilinogen Urine UA 0.2 E.U./dL (0.2)
[2021-11-12 19:35] LABS: pH Urine UA 5.5 (4.5-8.0)
[2021-11-12 19:53] LABS: Bacteria Urine Moderate (10-30); Culture Indicated Urine Specimen Cultured; RBC Urine None Seen (0-5/HPF); Squamous Epithelial Cell Urine 0-1 /HPF (0-5/HPF); WBC Urine 10-30/HPF (0-5/HPF)
[2021-11-14 07:01] LABS: Parathyroid Hormone Int 71 pg/mL (15-65)
== END ==
PROVIDERS: PCP Internal Medicine; Referring Provider Student in an Organized Health Care Education/Training Program; Visit Provider Student in an Organized Health Care Education/Training Program
DX: N05.9 Unspecified nephritic syndrome with unspecified morphologic changes (principal); D64.9 Anemia, unspecified; N25.81 Secondary hyperparathyroidism of renal origin; N30.00 Acute cystitis without hematuria; R80.9 Proteinuria, unspecified
CPT/HCPCS: 36415; 80048; 81001; 82570; 83970; 84156; 85014; 85018; 87077; 87086; 87186

== ENCOUNTER → 2021-12-08 09:44 | Outpatient (CLI) | payer MEDICARE, OTHER, SELFPAY ==
[2021-12-08 10:51] LABS: BUN Creatinine Ratio 18.4 (6-22); Blood Urea Nitrogen 16 mg/dL (7-17); Calcium 9.2 mg/dL (8.4-10.2); Carbon Dioxide 27 mmol/L (22-32); Chloride 102 mmol/L (98-107); Estimated Glomerular Filt Rate > 60 mL/min (>60); Glucose 99 mg/dL (80-110); HEMOLYSIS < 15 (0-50); Potassium 4.4 mmol/L (3.4-5.1); Sodium 138 mmol/L (137-145)
[2021-12-08 11:34] LABS: Creatinine Urine Random 56.6 mg/dL; Protein (Total) Urine Random 6 mg/dL (0-12)
== END ==
PROVIDERS: PCP Internal Medicine; Referring Provider Student in an Organized Health Care Education/Training Program; Visit Provider Student in an Organized Health Care Education/Training Program
DX: N05.9 Unspecified nephritic syndrome with unspecified morphologic changes (principal); R80.9 Proteinuria, unspecified
CPT/HCPCS: 36415; 80048; 82570; 84156

== ENCOUNTER → 2022-04-26 12:01 | Outpatient (CLI) | payer MEDICARE, OTHER, SELFPAY ==
--- NOTE | 2022-04-26 12:03 | DI.US.S_ITS ---
PROCEDURE: US PELVIC COMPLETE INDICATIONS: post-menopausal vaginal bleeding TECHNIQUE: Real-time scanning was performed of the pelvic organs, with image documentation. Additional endovaginal scanning was necessary due to incomplete visualization of the adnexal and endometrial structures by transabdominal scanning. COMPARISON: None. FINDINGS: Uterus: Hysterectomy. Ovaries: Ovaries not visualized for Other: No pathologic free abdominal or pelvic fluid. IMPRESSION: Hysterectomy. No adnexal mass. We strive to produce accurate, complete, and clear reports of imaging services. To assist us in improving patient care, this report was composed using standard report templates and voice recognition software. Therefore, it may contain abnormal punctuation, insertions and/or omissions. Occasional wrong-word or sound-alike substitutions may occur. Though we review the report and make efforts to correct it, we do recommend that the report be read carefully in proper context to recognize any text inaccuracies. Dictated by: Tip Zarate M.D. on 04/26/2022 at 14:10 Approved by: Tip Zarate M.D. on 04/26/2022 at 14:14
== END ==
PROVIDERS: PCP Family Medicine; Referring Provider Family Medicine; Visit Provider Family Medicine
DX: N93.9 Abnormal uterine and vaginal bleeding, unspecified (principal); Z90.710 Acquired absence of both cervix and uterus
CPT/HCPCS: 76830; 76856

== ENCOUNTER → 2022-05-07 09:44 | Outpatient (CLI) | payer MEDICARE, OTHER, SELFPAY ==
[2022-05-07 10:48] LABS: Creatinine Urine Random 24.5 mg/dL; Protein (Total) Urine Random 13 mg/dL (0-12); Protein Creatinine Ratio Urine 0.53 GRAM/24H
[2022-05-07 11:49] LABS: Hematocrit 41.4 % (36-46); Hemoglobin 13.8 g/dL (12.0-16.0)
[2022-05-07 12:14] LABS: Blood Urea Nitrogen 20 mg/dL (7-17); Calcium 9.1 mg/dL (8.4-10.2); Carbon Dioxide 29 mmol/L (22-32); Chloride 101 mmol/L (98-107); Estimated Glomerular Filt Rate > 60 mL/min (>60); Glucose 83 mg/dL (80-110); HEMOLYSIS < 15 (0-50); Potassium 4.5 mmol/L (3.4-5.1); Sodium 136 mmol/L (137-145)
[2022-05-09 07:47] LABS: Parathyroid Hormone Int 66 pg/mL (15-65)
== END ==
PROVIDERS: PCP Family Medicine; Referring Provider Student in an Organized Health Care Education/Training Program; Visit Provider Student in an Organized Health Care Education/Training Program
DX: N05.9 Unspecified nephritic syndrome with unspecified morphologic changes (principal); D64.9 Anemia, unspecified; N25.81 Secondary hyperparathyroidism of renal origin; R80.9 Proteinuria, unspecified
CPT/HCPCS: 36415; 80048; 82570; 83970; 84156; 85014; 85018

== ENCOUNTER 2022-09-02 07:24 | Day surgery (SDC) | payer MEDICARE, OTHER, SELFPAY ==
[2022-08-26 08:08] VITALS: BMI 22.1
[2022-09-02 07:52] VITALS: BP 185/74; PULSE 73; RESP 16; TEMP 36.3; O2SAT 73; BMI 22.1
--- NOTE | 2022-09-02 08:26 | PM.PREOP ---
Pre-operative Note COVID-19 Criteria for continued procedure: Expected advancement of disease process Interval Note History & Physical reviewed/Exam performed by Physician: Yes Changes to H&P: No
[2022-09-02] MEDS: LACTATED RINGERS 1,000 ML 100 ML IV (08:29)
[2022-09-02] MEDS: CEFAZOLIN 2 GM/100 ML PREMIX 100 ML IV (09:00)
--- NOTE | 2022-09-02 09:10 | SUR.OPER ---
Lithotomy on padded OR bed, head on pillow, arms secured on padded arm boards at <90 degrees abduction. Legs secured in padded yellow fins stirrups.
[2022-09-02] MEDS: BUPIVACAINE 0.5% W/ EPI (PF) 30 ML VIAL 10 ML INJ (09:13)
--- NOTE | 2022-09-02 09:58 | PM.OP.1 ---
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 Closure Type: primary Specimen(s): none sent Estimated Blood Loss (mL): 50 Procedure in detail: The patient was brought to the operating room where she was in a supine position in [facility] and underwent a light general anesthetic. She was prepped and draped in the usual sterile fashion. Her bladder was drained. 2 g of Ancef were in prior to beginning of the case. Warming was in place. Pulsatile stockings were in place. Area on anterior and posterior wall of the prolapse were marked with a marking pen and injected with a dilute solution of half percent Marcaine with epinephrine. The skin was incised with a scalpel and undermined with and removed removed with Metzenbaum scissors. 2-0 Vicryl suture was used in an interrupted fashion to close anterior to posterior on the sides creating a tunnel from the vaginal apex to the external area The vaginal incision was closed from anterior to posterior. Counts of instruments and sponges were correct. Patient went to recovery room in good Complications: none Post-operative Condition: stable Disposition: same day surgery Plan for aftercare: Home when awake and stable. Follow-up in 2 weeks.
[2022-09-02 10:03] VITALS: BP 154/53; PULSE 62; RESP 12; TEMP 36.3; O2SAT 98
[2022-09-02 10:05] VITALS: BP 137/60; PULSE 64; RESP 10; O2SAT 98
[2022-09-02 10:11] VITALS: BP 148/49; PULSE 62; RESP 14; O2SAT 99
[2022-09-02 10:20] VITALS: BP 151/64; PULSE 62; RESP 14; TEMP 36.2; O2SAT 98
== END 2022-09-02 10:34 | disposition home or self-care (01) ==
PROVIDERS: PCP Family Medicine; Referring Provider Specialist; Visit Provider Specialist
PROC: (CPT 57120; principal; 2022-09-02 08:45)
DX: N81.10 Cystocele, unspecified (principal)
CPT/HCPCS: 57120; J0690; J1100; J2250; J2405; J2704; J3010

== ENCOUNTER → 2022-10-23 11:25 | Outpatient (CLI) | payer MEDICARE, OTHER, SELFPAY ==
--- NOTE | 2022-10-23 | DI.MG.S_ITS ---
BILATERAL DIGITAL SCREENING MAMMOGRAM 3D/2D WITH CAD: 10/23/2022 CLINICAL: Routine screening. Family history of breast cancer. Comparison is made to exams dated: 09/01/2021 mammogram - [facility], 08/10/2020 mammogram - [facility], and 03/10/2019 mammogram - [facility]. Both breasts are heterogeneously dense, which may obscure small masses (category c / 51-75% glandular tissue). Current study was also evaluated with a Computer Aided Detection (CAD) system. There are benign vascular calcifications in the right breast. No significant masses, calcifications, or other findings are seen in either breast. There has been no significant interval change. IMPRESSION: BENIGN There is no mammographic evidence of malignancy. A 1 year screening mammogram is recommended. Based on the Tyrer Cuzick model (a risk assessment model) the patient's lifetime risk is 1.8% and her 10 year risk is 0.0%. According to the ACR, ACS, and NCCN guidelines, an annual breast MRI exam along with mammogram is recommended if the patient's lifetime risk is 20% or greater. This exam was interpreted at Station ID: [id number]. NOTE: For mammograms, a report in lay terms will be sent to the patient. Approximately 15% of breast malignancies will not be visualized mammographically. In the management of a palpable breast mass, a negative mammogram must not discourage biopsy of a clinically suspicious lesion. Electronically Signed By: Joes puente/phu:10/27/2022 14:20:09 letter sent: Normal Exam ACR BI-RADS Category 2: Benign Finding(s) 3342F
== END ==
PROVIDERS: PCP Family Medicine; Referring Provider Family Medicine; Visit Provider Family Medicine
DX: Z12.31 Encounter for screening mammogram for malignant neoplasm of breast (principal)
CPT/HCPCS: 77063; 77067

== ENCOUNTER → 2023-01-13 14:33 | Outpatient (CLI) | payer MEDICARE, OTHER, SELFPAY ==
[2023-01-13 15:26] LABS: Hematocrit 38.8 % (36-46)
[2023-01-13 16:22] LABS: BUN Creatinine Ratio 29.3 (6-22); Blood Urea Nitrogen 29 mg/dL (7-17); Calcium 9.6 mg/dL (8.4-10.2); Carbon Dioxide 26 mmol/L (22-32); Chloride 102 mmol/L (98-107); Estimated Glomerular Filt Rate 57 mL/min (>60); Glucose 134 mg/dL (80-110); HEMOLYSIS < 15 (0-50); Potassium 4.4 mmol/L (3.4-5.1); Sodium 136 mmol/L (137-145)
[2023-01-13 18:59] LABS: Creatinine Urine Random 36.5 mg/dL; Protein (Total) Urine Random 7 mg/dL (0-12); Protein Creatinine Ratio Urine 0.19 GRAM/24H
[2023-01-16 07:42] LABS: Parathyroid Hormone Int 57 pg/mL (15-65)
== END ==
PROVIDERS: PCP Family Medicine; Referring Provider Student in an Organized Health Care Education/Training Program; Visit Provider Student in an Organized Health Care Education/Training Program
DX: N05.9 Unspecified nephritic syndrome with unspecified morphologic changes (principal); D64.9 Anemia, unspecified; N25.81 Secondary hyperparathyroidism of renal origin; R80.9 Proteinuria, unspecified
CPT/HCPCS: 36415; 80048; 82570; 83970; 84156; 85014; 85018

== ENCOUNTER → 2023-06-19 13:41 | Outpatient (CLI) | payer MEDICARE, OTHER, SELFPAY | LOC: CAR 13:43 | PROVIDERS: PCP Family Medicine; Referring Provider Family Medicine; Visit Provider Family Medicine | DX: R00.1 Bradycardia, unspecified (principal) | CPT/HCPCS: 93246 ==

== ENCOUNTER → 2023-08-27 11:01 | Outpatient (CLI) | payer MEDICARE, OTHER, SELFPAY ==
[2023-08-27 12:17] LABS: Hematocrit 40.6 % (36-46); Hemoglobin 13.6 g/dL (12.0-16.0)
[2023-08-27 12:35] LABS: BUN Creatinine Ratio 27.6 (6-22); Blood Urea Nitrogen 29 mg/dL (7-17); Calcium 9.7 mg/dL (8.4-10.2); Carbon Dioxide 27 mmol/L (22-32); Chloride 106 mmol/L (98-107); Estimated Glomerular Filt Rate 53 mL/min (>60); Glucose 112 mg/dL (80-110); HEMOLYSIS < 15 (0-50); Sodium 140 mmol/L (137-145)
[2023-08-28 11:59] LABS: Creatinine Urine Random 87.63 mg/dL
[2023-08-28 12:00] LABS: Protein (Total) Urine Random < 5 mg/dL (0-12); Protein Creatinine Ratio Urine 0.05 GRAM/24H
[2023-08-30 05:39] LABS: Parathyroid Hormone Int 37 pg/mL (15-65)
== END ==
PROVIDERS: PCP Family Medicine; Referring Provider Student in an Organized Health Care Education/Training Program; Visit Provider Student in an Organized Health Care Education/Training Program
DX: N05.9 Unspecified nephritic syndrome with unspecified morphologic changes (principal); D70.9 Neutropenia, unspecified; D63.1 Anemia in chronic kidney disease; N25.81 Secondary hyperparathyroidism of renal origin; R80.9 Proteinuria, unspecified
CPT/HCPCS: 36415; 80048; 82570; 83970; 84156; 85014; 85018

== ENCOUNTER → 2023-09-13 10:38 | Outpatient (CLI) | payer MEDICARE, OTHER, SELFPAY ==
[2023-09-13 11:31] LABS: Blood Urea Nitrogen 26 mg/dL (7-17); C-Reactive Protein Quant < 0.5 mg/dL (<1.0); Calcium 9.2 mg/dL (8.4-10.2); Carbon Dioxide 25 mmol/L (22-32); Chloride 106 mmol/L (98-107); Estimated Glomerular Filt Rate 56 mL/min (>60); Glucose 118 mg/dL (80-110); HEMOLYSIS < 15 (0-50); Sodium 139 mmol/L (137-145)
[2023-09-13 11:37] LABS: Erythrocyte Sedimentation Rate 8 MM/HR (0-20)
[2023-09-13 11:39] LABS: Rheumatoid Factor < 8.6 IU/mL (<12.0)
[2023-09-15 15:08] LABS: CCP Antibodies IgG/IgA 5 units (0-19)
== END ==
PROVIDERS: PCP Family Medicine; Referring Provider Family Medicine; Visit Provider Family Medicine
DX: N18.30 Chronic kidney disease, stage 3 unspecified (principal); M25.50 Pain in unspecified joint
CPT/HCPCS: 36415; 80048; 85651; 86140; 86200; 86430

== ENCOUNTER → 2023-11-07 14:37 | Outpatient (CLI) | payer MEDICARE, OTHER, SELFPAY ==
--- NOTE | 2023-11-07 14:38 | DI.MG.S_ITS ---
BILATERAL DIGITAL SCREENING MAMMOGRAM 3D/2D WITH CAD: 11/07/2023 CLINICAL: Routine screening. Family history of breast cancer. Comparison is made to exams dated: 10/23/2022 mammogram, 09/01/2021 mammogram - [facility], 08/10/2020 mammogram - [facility], 03/10/2019 mammogram, and 02/25/2018 mammogram - [facility]. The breasts are heterogeneously dense, which may obscure small masses (category c / 51-75% glandular tissue). Current study was also evaluated with a Computer Aided Detection (CAD) system. There are benign calcifications in both breasts. There also are benign vascular calcifications in the right breast. No significant masses, calcifications, or other findings are seen in either breast. There has been no significant interval change. IMPRESSION: BENIGN There is no mammographic evidence of malignancy. A 1 year screening mammogram is recommended. Based on the Tyrer Cuzick model (a risk assessment model) the patient's lifetime risk is 0.9% and her 10 year risk is 0.0%. According to the ACR, ACS, and NCCN guidelines, an annual breast MRI exam along with mammogram is recommended if the patient's lifetime risk is 20% or greater. This exam was interpreted at Station ID: [id number]. NOTE: For mammograms, a report in lay terms will be sent to the patient. Approximately 15% of breast malignancies will not be visualized mammographically. In the management of a palpable breast mass, a negative mammogram must not discourage biopsy of a clinically suspicious lesion. Electronically Signed By: Primitivo [email or web address]/[email or web address]:11/07/2023 15:37:12 letter sent: Normal Exam ACR BI-RADS Category 2: Benign
== END ==
PROVIDERS: PCP Family Medicine; Referring Provider Family Medicine; Visit Provider Family Medicine
DX: Z12.31 Encounter for screening mammogram for malignant neoplasm of breast (principal); Z80.3 Family history of malignant neoplasm of breast; R92.333 Mammographic heterogeneous density, bilateral breasts
CPT/HCPCS: 77063; 77067

== ENCOUNTER → 2023-12-13 11:28 | Outpatient (CLI) | payer MEDICARE, OTHER, SELFPAY ==
[2023-12-13 12:15] LABS: BUN Creatinine Ratio 18.9 (6-22); Blood Urea Nitrogen 18 mg/dL (7-17); Calcium 9.4 mg/dL (8.4-10.2); Carbon Dioxide 27 mmol/L (22-32); Chloride 105 mmol/L (98-107); Estimated Glomerular Filt Rate 59 mL/min (>60); Glucose 118 mg/dL (80-110); HEMOLYSIS < 15 (0-50); Potassium 4.7 mmol/L (3.4-5.1); Sodium 138 mmol/L (137-145)
== END ==
PROVIDERS: PCP Family Medicine; Referring Provider Family Medicine; Visit Provider Family Medicine
DX: N18.30 Chronic kidney disease, stage 3 unspecified (principal)
CPT/HCPCS: 36415; 80048

== ENCOUNTER → 2024-03-15 12:23 | Outpatient (CLI) | payer MEDICARE, OTHER, SELFPAY ==
[2024-03-15 13:08] LABS: Hematocrit 41.9 % (36-46); Hemoglobin 13.9 g/dL (12.0-16.0)
[2024-03-15 13:34] LABS: BUN Creatinine Ratio 21.2 (6-22); Blood Urea Nitrogen 22 mg/dL (7-17); Calcium 9.5 mg/dL (8.4-10.2); Carbon Dioxide 26 mmol/L (22-32); Chloride 104 mmol/L (98-107); Estimated Glomerular Filt Rate 53 mL/min (>60); Glucose 102 mg/dL (80-110); HEMOLYSIS < 15 (0-50); Potassium 4.7 mmol/L (3.4-5.1); Sodium 138 mmol/L (137-145)
[2024-03-16 09:36] LABS: Parathyroid Hormone Int 52 pg/mL (15-65)
== END ==
PROVIDERS: PCP Family Medicine; Referring Provider Student in an Organized Health Care Education/Training Program; Visit Provider Student in an Organized Health Care Education/Training Program
DX: N05.9 Unspecified nephritic syndrome with unspecified morphologic changes (principal); D70.9 Neutropenia, unspecified; D63.1 Anemia in chronic kidney disease; R80.9 Proteinuria, unspecified; N25.81 Secondary hyperparathyroidism of renal origin
CPT/HCPCS: 36415; 80048; 83970; 85014; 85018

== ENCOUNTER → 2024-07-02 10:45 | Outpatient (CLI) | payer MEDICARE, OTHER, SELFPAY ==
[2024-07-02 11:19] LABS: Hematocrit 40.4 % (36-46)
[2024-07-02 11:37] LABS: BUN Creatinine Ratio 24.5 (6-22); Blood Urea Nitrogen 23 mg/dL (7-17); Calcium 9.9 mg/dL (8.4-10.2); Carbon Dioxide 26 mmol/L (22-32); Chloride 101 mmol/L (98-107); Estimated Glomerular Filt Rate 60 mL/min (>60); Glucose 116 mg/dL (70-99); HEMOLYSIS < 15 (0-50); Potassium 4.2 mmol/L (3.4-5.1); Sodium 135 mmol/L (137-145)
[2024-07-02 12:09] LABS: Creatinine Urine Random 69.89 mg/dL; Protein (Total) Urine Random 8 mg/dL (0-12); Protein Creatinine Ratio Urine 0.11 GRAM/24H
[2024-07-03 09:10] LABS: Parathyroid Hormone Int 47 pg/mL (15-65)
== END ==
PROVIDERS: PCP Family Medicine; Referring Provider Student in an Organized Health Care Education/Training Program; Visit Provider Student in an Organized Health Care Education/Training Program
DX: N05.9 Unspecified nephritic syndrome with unspecified morphologic changes (principal); D70.9 Neutropenia, unspecified; D63.1 Anemia in chronic kidney disease; R80.9 Proteinuria, unspecified; N25.81 Secondary hyperparathyroidism of renal origin
CPT/HCPCS: 36415; 80048; 82570; 83970; 84156; 85014; 85018

== ENCOUNTER → 2024-07-08 14:01 | Outpatient (CLI) | payer MEDICARE, OTHER, SELFPAY ==
--- NOTE | 2024-07-08 14:03 | DI.US.S_ITS ---
PROCEDURE: US EXTREMITY NONVASC LOWER LT INDICATIONS: eval cruz's cyst TECHNIQUE: Real-time scanning was performed of the left knee , with image documentation. COMPARISON: None. FINDINGS: No Cruz's cyst is identified. Visualized vascular structures primarily the superficial vein and popliteal veins are widely patent. IMPRESSION: No visualized Cruz's cyst. Dictated by: Karlie Gonzales M.D. on 07/11/2024 at 19:40 Approved by: Karlie Gonzales M.D. on 07/11/2024 at 19:41
== END ==
PROVIDERS: PCP Family Medicine; Referring Provider Family Medicine; Visit Provider Family Medicine
DX: M79.605 Pain in left leg (principal)
CPT/HCPCS: 76882

== ENCOUNTER → 2024-11-03 13:36 | Outpatient (CLI) | payer MEDICARE, OTHER, SELFPAY | LOC: CAR 13:36 | PROVIDERS: PCP Family Medicine; Referring Provider Family Medicine; Visit Provider Family Medicine | DX: R00.2 Palpitations (principal); R42 Dizziness and giddiness | CPT/HCPCS: 93246 ==

== ENCOUNTER → 2024-11-06 08:12 | Outpatient (CLI) | payer MEDICARE, OTHER, SELFPAY ==
[2024-11-06 09:32] LABS: Add Manual Diff / Slide Review NO; Hematocrit 40.0 % (36-46); Hemoglobin 13.6 g/dL (12.0-16.0); Lymphocytes Absolute Auto 2000 /uL (1100-4500); Mean Corpuscular HGB Conc 34.0 % (30-36); Mean Corpuscular Hemoglobin 29.5 PG (26-34); Mean Corpuscular Volume 86.8 fL (80-100); Platelet Count 269 X10^3/uL (150-400)
[2024-11-06 09:55] LABS: Alanine Aminotransferase 21 IU/L (<35); Albumin 4.3 g/dL (3.5-5.0); Albumin Globulin Ratio 1.4 (1.0-2.8); Alkaline Phosphatase 78 U/L (38-126); Blood Urea Nitrogen 22 mg/dL (7-17); Calcium 9.9 mg/dL (8.4-10.2); Carbon Dioxide 26 mmol/L (22-32); Chloride 103 mmol/L (98-107); Cholesterol 237 mg/dL (140-199); Estimated Glomerular Filt Rate > 60 mL/min (>60); Globulin 3.0 g/dL (1.7-4.1); Glucose 96 mg/dL (70-99); HDL Cholesterol 81 mg/dL (40-60); HEMOLYSIS < 15 (0-50); Sodium 136 mmol/L (137-145); Total Protein 7.3 g/dL (6.3-8.2); Triglycerides 92 mg/dL (35-150)
[2024-11-06 09:56] LABS: Potassium 5.4 mmol/L (3.4-5.1)
[2024-11-06 10:26] LABS: TSH w/ Reflex to FT4 4.67 uIU/mL (0.47-4.68)
[2024-11-06 11:16] LABS: Microalbumi Creatinin Ratio Ur 42.0 ug/mg CR (<30)
== END ==
LOC: LAB 08:13
PROVIDERS: PCP Family Medicine; Referring Provider Family Medicine; Visit Provider Family Medicine
DX: Z00.00 Encounter for general adult medical examination without abnormal findings (principal); N18.30 Chronic kidney disease, stage 3 unspecified; I10 Essential (primary) hypertension; E78.5 Hyperlipidemia, unspecified; R42 Dizziness and giddiness
CPT/HCPCS: 36415; 80053; 80061; 82043; 82570; 84443; 85025

== ENCOUNTER → 2024-12-17 08:16 | Outpatient (CLI) | payer MEDICARE, OTHER, SELFPAY ==
[2024-12-17 09:03] LABS: Hematocrit 41.9 % (36-46); Hemoglobin 14.2 g/dL (12.0-16.0)
[2024-12-17 09:43] LABS: Blood Urea Nitrogen 18 mg/dL (7-17); Calcium 9.7 mg/dL (8.4-10.2); Carbon Dioxide 28 mmol/L (22-32); Chloride 101 mmol/L (98-107); Estimated Glomerular Filt Rate > 60 mL/min (>60); Glucose 98 mg/dL (70-99); HEMOLYSIS < 15 (0-50); Potassium 4.7 mmol/L (3.4-5.1); Sodium 136 mmol/L (137-145)
[2024-12-17 10:33] LABS: Protein (Total) Urine Random 9 mg/dL (0-12); Protein Creatinine Ratio Urine 0.11 GRAM/24H
== END ==
PROVIDERS: PCP Family Medicine; Referring Provider Family Medicine; Visit Provider Student in an Organized Health Care Education/Training Program
DX: D70.9 Neutropenia, unspecified (principal); N05.9 Unspecified nephritic syndrome with unspecified morphologic changes; D63.1 Anemia in chronic kidney disease; R80.9 Proteinuria, unspecified
CPT/HCPCS: 36415; 80048; 82570; 83970; 84156; 85014; 85018